=== PATIENT | female | born 1985 | race Caucasian/White ===

== ENCOUNTER 2018-04-16 20:36 | Emergency (ER) | payer BC ==
[2018-04-16 21:08] LABS: Bilirubin Negative (Negative); Blood, Urine Small (Negative); Clarity CLEAR (Clear); Glucose, Urine (Dipstick) Negative (Negative); Leukocyte Negative (Negative); Nitrite Negative (Negative); Protein, Urine (Dipstick) Negative (Neg-Trace); Specific Gravity, Urine 1.005 (1.002-1.036); Urobilinogen 0.2 mg/dL (0.2-1.0); pH, Urine 7.5 (5.0-9.0)
[2018-04-16 21:10] LABS: Bacteria/HPF None Seen HPF (None Seen); Hyaline Casts/LPF 0-3 HYALINE CAST LPF (0-3 Hyaline); RBC/HPF 0-3 HPF (0-3); Squamous Epithelial None Seen HPF (0-3); WBC/HPF None Seen HPF (0-3)
[2018-04-16 21:14] LABS: Pregnancy Test - Urine (BHCG) Negative (Negative); Pregu Control Background? CLEAR/WHITE (CLR/WHITE); Pregu Control Bar Appear? YES (CONTROL BAR); Specific Gravity 1.005 (1.002-1.036)
[2018-04-16 21:16] LABS: #Basophils 0.1 thou/uL (0.0-0.2); #Eosinphils 0.1 thou/uL (0.0-0.7); #Lymphocytes 2.4 thou/uL (1.20-3.40); #Monocytes 0.7 thou/uL (0.11-0.59); #Neutrophils 9.7 thou/uL (1.40-6.50); %Basophils 0.7 % (0.0-1.0); %Eosinophils 0.9 % (0.0-10.0); %Lymphocytes 18.5 % (21.0-51.0); %Monocytes 5.3 % (0.0-10.0); %Neutrophils 74.6 % (42.0-75.0); Hemoglobin 13.2 g/dL (12.0-16.0); Mean Corpuscular HGB CONC 33.7 g/dL (32.0-36.0); Mean Corpuscular Hemoglobin 31.2 pg (27.0-31.0); Mean Corpuscular Volume 92.5 fL (78.0-98.0); Mean Platelet Volume 7.5 fL (7.4-10.4); Platelet Count 258 thou/uL (130-400); Red Blood Cell (RBC) Count 4.25 mill/uL (4.20-5.40)
[2018-04-16 21:34] LABS: ALT (SGPT) 10 U/L (8-55); AST (SGOT) 14 U/L (5-34); Alkaline Phosphatase 59 U/L (40-150); Anion Gap 13 mmol/L (10-20); BUN (Urea Nitrogen) 11 mg/dL (7.0-18.7); Bilirubin, Total 0.4 mg/dL (0.2-1.2); Calc. Creatinine Clearance 0 mL/min (70-130); Calcium 8.6 mg/dL (7.8-10.44); Carbon Dioxide 22 mmol/L (22-29); Chloride 110 mmol/L (98-107); Estimated GFR-MDRD 89; Globulin 2.3 g/dL (2.4-3.5); Glucose 119 mg/dL (70-105); Potassium 3.7 mmol/L (3.5-5.1); Protein, Total 6.3 g/dL (6.0-8.3); Sodium 141 mmol/L (136-145)
--- NOTE | 2018-04-16 21:44 | CT ---
BRAIN CT WITHOUT IV CONTRAST: History: 33-year-old female with history of anxiety, chest pain. FINDINGS: No focal mass or midline shift. No intra or extraaxial hemorrhage. Sinuses and mastoids are clear of acute process. IMPRESSION: No acute process. POS: [facility]
[2018-04-16 21:53] LABS: Amphetamine Not Detected (NotDetected); Barbiturates Screen Not Detected (NotDetected); Benzodiazepine Screen Not Detected (NotDetected); Cocaine Metabolite Screen Not Detected (NotDetected); Medtox Control Line Valid? VALID (VALID); Medtox Reader # READER 1; Methadone Not Detected (NotDetected); Methamphetamine Not Detected (NotDetected); Opiate Screen Not Detected (NotDetected); Oxycodone Screen Not Detected (NotDetected); Phencyclidine (PCP) Not Detected (NotDetected); THC/Cannabinoid Screen Not Detected (NotDetected); Tricyclic Screen Not Detected (NotDetected)
[2018-04-16] MEDS ORDERED: Ondansetron PF 4 MG/2 ML Vial ONE (22:06)
[2018-04-16] MEDS ORDERED: ALPRAZolam 0.5 MG TAB ONE (22:06)
[2018-04-16] MEDS ORDERED: Promethazine HCl 25 MG/ML VIAL ONE (23:12)
== END 2018-04-16 23:50 | disposition home or self-care (01) ==
LOC: ERS 20:36
DX: F43.9 Reaction to severe stress, unspecified (principal); R11.0 Nausea; R10.9 Unspecified abdominal pain; F17.210 Nicotine dependence, cigarettes, uncomplicated; Z79.899 Other long term (current) drug therapy
CPT/HCPCS: 36415; 70450; 80053; 80306; 81003; 81015; 81025; 84146; 85025; 93005; 96361; 96365; 96375; J2405; J2550

== ENCOUNTER 2018-07-07 09:51 | Outpatient (CLI) | payer BC ==
--- NOTE | 2018-07-07 11:21 | ULT ---
ULTRASOUND LEFT BREAST: Date: 07/07/18 INDICATION: Ultrasound of the left breast is performed to evaluate a palpable mass noted by the patient at the 3 o'clock periareolar region. FINDINGS: Ultrasound reveals a circumscribed hypoechoic mass at 3 o'clock, 1.0 cm from the nipple, measuring 1. 5 x 1.1 x 2.0 cm. Mass is well circumscribed. Findings favor a fibroadenoma. However, since this is a new palpable finding by the patient, biopsy is indicated. An ultrasound-guided core biopsy is recomm ended. IMPRESSION: BIRADS Category 4 - suspicious abnormality. Biopsy is recommended. Findings discussed with Dr. Leblanc's nurse at the time of this dictation. POS: [facility]
== END 2018-07-07 09:52 | disposition home or self-care (01) ==
LOC: BICMAMMO 09:51
PROVIDERS: ATTEND Obstetrics & Gynecology
DX: N63.21 Unspecified lump in the left breast, upper outer quadrant (principal); Z80.3 Family history of malignant neoplasm of breast
CPT/HCPCS: 77066; G0279

== ENCOUNTER → 2018-07-14 | Day surgery (SDC) | payer BC ==
[2018-07-13 16:55] VITALS: BMI 27.6
[~2018-07-14] MED LIST: Bupivacaine HCl 0.5%/Epinephrine 1:200,000/PF 30 ml Vial ONE; Dexamethasone 20 MG/5 ML VIAL ONE; Fentanyl 100 MCG/2 ML VIAL ONE; Ketorolac Tromethamine 30 MG/ML VIAL ONE; Lidocaine 1% PF 5 ML VIAL ONE; Lidocaine 2% PF 5 ML VIAL ONE; Meperidine HCl/PF 25 MG/ML VIAL ONE; Midazolam HCl 2 mg/2 ml Vial ONE; Ondansetron PF 4 MG/2 ML Vial ONE; PHENYLEPHRINE-NS 100 MCG/ML 10 ML SYRINGE ONE; PROPOFOL 200 MG/20 ML VIAL ONE; Scopolamine 1.5 mg/72 hour Patch ONE
[2018-07-14 08:32] LABS: #Eosinphils 0.1 thou/uL (0.0-0.7); #Monocytes 0.3 thou/uL (0.11-0.59); %Basophils 0.4 % (0.0-1.0); %Eosinophils 2.3 % (0.0-10.0); %Lymphocytes 37.2 % (21.0-51.0); %Monocytes 5.8 % (0.0-10.0); %Neutrophils 54.4 % (42.0-75.0); Hemoglobin 14.4 g/dL (12.0-16.0); Mean Corpuscular HGB CONC 33.4 g/dL (32.0-36.0); Mean Platelet Volume 7.7 fL (7.4-10.4); Platelet Count 228 thou/uL (130-400); RBC Distribution Width 10.9 % (11.5-14.5); Red Blood Cell (RBC) Count 4.63 mill/uL (4.20-5.40); White Blood Cell (WBC) Count 5.5 thou/uL (4.8-10.8)
--- NOTE | 2018-07-14 11:43 | OP ---
DATE OF PROCEDURE: 07/14/2018 PREOPERATIVE DIAGNOSIS: Upper outer quadrant left breast mass 3 cm in diameter. POSTOPERATIVE DIAGNOSIS: Upper outer quadrant left breast mass 3 cm in diameter. PROCEDURE PERFORMED: Excisional biopsy, left breast upper outer quadrant mass, 2 to 3 o'clock radian, 3 cm diameter. ANESTHESIA: General, local of 0.5% Marcaine with epinephrine 30 mL mixed with 2% Xylocaine 10 mL. DESCRIPTION OF PROCEDURE: The patient was taken to the operating room, where under general anesthesia, left breast was prepared with ChloraPrep and draped in routine fashion. Local anesthetic was infiltrated in the skin and subcutaneous tissue about the operative site. A periareolar incision was made in the upper outer quadrant of left breast carried down the skin and subcutaneous tissue and dissection was carried down to the palpable mass, dissected free, excised and submitted to Pathology. Hemostasis was obtained with cautery. Subcutaneous tissue was approximated with 3-0 Monocryl, skin with subdermal 4-0 Monocryl. Local anesthetic was infiltrated in the skin and subcutaneous tissue and infiltrated in the biopsy cavity for postoperative pain control. Ice wrap applied after Dermabond applied. The patient tolerated the procedure well. Job ID: [id number]
== END ==
LOC: SDC 07:47
PROVIDERS: ATTEND Specialist
PROC: 0HBU0ZX Excision of Left Breast, Open Approach, Diagnostic (ICD-10-PCS; principal; 2018-07-14)
DX: D24.2 Benign neoplasm of left breast (principal); N60.82 Other benign mammary dysplasias of left breast; Z98.51 Tubal ligation status; Z98.890 Other specified postprocedural states
CPT/HCPCS: 85025; 88305; J0131; J0670; J1100; J1885; J2001; J2175; J2250; J2405; J2704; J3010